=== PATIENT | male | born 1995 | race Caucasian/White ===

== ENCOUNTER 2017-09-06 08:26 | Emergency (ER) | payer MEDICAID ==
[~2017-09-06] VITALS: Ht 180.3 cm; Wt 93.0 kg
[~2017-09-06 08:26] MED LIST: CHOL20002 PO; OMEP20TA PO
[2017-09-06 09:48] LABS: Basophils # (auto) 0.1 uL; Basophils % (auto) 0.4 % (0.0-2.0); Eosinophils # (auto) 0.1 uL; Eosinophils % (auto) 0.9 % (0.0-7.0); Hematocrit 43.3 % (41.0-53.0); Hemoglobin 14.8 g/dL (13.5-17.5); Lymphocytes # (auto) 2.3 uL; Lymphocytes % (auto) 16.1 % (10.0-50.0); Mean Corpuscular Hemoglobin 28.3 pg (28.0-32.0); Mean Corpuscular Hgb Conc. 34.3 g/dL (32.0-36.0); Mean Corpuscular Volume 82.4 fL (80.0-100.0); Monocytes # (auto) 0.6 uL; Monocytes % (auto) 3.9 % (0.0-12.0); Neutrophils # (auto) 11.4 uL; Neutrophils % (auto) 78.7 % (37.0-80.0); Platelet Count (auto) 400 10^3/uL (140-450); Red Blood Cells 5.25 10^6/uL (4.5-5.90); Red Cell Distribution Width 13.4 % (11.8-14.3); White Blood Cell 14.5 10^3/uL (4.4-10.8)
[2017-09-06 10:01] LABS: Alanine Aminotransferase 108 U/L (16-61); Albumin 3.7 g/dL (3.4-5.0); Alkaline Phosphatase 108 U/L (45-117); Anion Gap 6 (5-15); Aspartate Aminotransferase 40 U/L (15-37); BUN/Creatinine Ratio 20.3; Bilirubin, Total 0.3 mg/dL (0.2-1.0); Blood Urea Nitrogen 16 mg/dL (7-18); Calcium 8.4 mg/dL (8.5-10.1); Carbon Dioxide 25 mmol/L (21-32); Chloride 105 mmol/L (98-107); GFR African American 156 mL/min; GFR Non-African American 129 mL/min; Glucose 79 mg/dL (74-106); Potassium 3.9 mmol/L (3.5-5.1); Sodium 136 mmol/L (136-145); Total Protein 8.4 g/dL (6.4-8.2)
[2017-09-06 11:02] VITALS: BP 118/85
== END 2017-09-06 12:41 | disposition home or self-care (01) ==
LOC: EDBD 08:26 → ER 08:26
DX: R07.89 Other chest pain (principal); J40 Bronchitis, not specified as acute or chronic; I25.2 Old myocardial infarction; Z91.041 Radiographic dye allergy status; Z88.8 Allergy status to other drugs, medicaments and biological substances
CPT/HCPCS: 36415; 71046; 80053; 84484; 85025; 93005

== ENCOUNTER 2023-03-01 20:26 | Emergency (ER) | payer MEDICAID ==
[~2023-03-01] VITALS: Ht 180.3 cm; Wt 102.2 kg
[2023-03-01 20:29] VITALS: BP 138/76; RESP 18; TEMP 98.2
[2023-03-01 21:30] LABS: Rapid Influenza A Negative (Negative); Rapid Influenza B Negative (Negative)
[2023-03-01 21:33] LABS: Basophils # (auto) 0 10 ^3/uL (0-0.2); Basophils % (auto) 0.4 % (0.0-2.0); Eosinophils # (auto) 0 10 ^3/uL (0-0.8); Eosinophils % (auto) 0.4 % (0.0-7.0); Hematocrit 39.1 % (41.0-53.0); Hemoglobin 13.1 g/dL (13.5-17.5); Lymphocytes # (auto) 1.6 10 ^3/uL (0.4-5.4); Lymphocytes % (auto) 15.7 % (10.0-50.0); Mean Corpuscular Hemoglobin 27.8 pg (28.0-32.0); Mean Corpuscular Hgb Conc. 33.4 g/dL (32.0-36.0); Mean Corpuscular Volume 83.2 fL (80.0-100.0); Monocytes # (auto) 0.5 10 ^3/uL (0-1.3); Monocytes % (auto) 4.5 % (0.0-12.0); Red Cell Distribution Width 14.2 % (11.8-14.3); White Blood Cell 10.1 10^3/uL (4.4-10.8)
[2023-03-01 21:47] LABS: Alanine Aminotransferase 132 U/L (7-40); Albumin 4.5 g/dL (3.2-4.8); Alkaline Phosphatase 113 U/L (46-116); Anion Gap 7 (5-15); Aspartate Aminotransferase 38 U/L (13-40); BUN/Creatinine Ratio 19.3 (10.0-20.0); Blood Urea Nitrogen 17 mg/dL (9-23); Calcium 9.1 mg/dL (8.7-10.4); Carbon Dioxide 26 mmol/L (20-30); Chloride 108 mmol/L (98-107); Glucose 93 mg/dL (74-106); Potassium 4.1 mmol/L (3.5-5.1); Sodium 141 mmol/L (136-145)
[2023-03-01 21:48] LABS: COVID19 ANTIGEN SOFIA FIA NEGATIVE (NEGATIVE)
[2023-03-01 21:48] LABS: Bilirubin, Total 0.3 mg/dL (0.2-1.0)
[2023-03-01 21:57] VITALS: PULSE 99
[2023-03-01 22:04] VITALS: O2SAT 98
== END 2023-03-01 23:06 | disposition home or self-care (01) ==
LOC: EDBD 20:26 → ER 20:26
DX: R53.1 Weakness (principal); R11.0 Nausea; R42 Dizziness and giddiness; F32.9 Major depressive disorder, single episode, unspecified; Z91.040 Latex allergy status; Z91.041 Radiographic dye allergy status; Z88.8 Allergy status to other drugs, medicaments and biological substances; Z79.899 Other long term (current) drug therapy; Z20.822 Contact with and (suspected) exposure to COVID-19
CPT/HCPCS: 36415; 80053; 84484; 85025; 87426; 87804; 93005